=== PATIENT | male | born 1935 | race Two or more races ===

== ENCOUNTER → 2019-05-29 | Outpatient (CLI) | payer OTHER ==
[~2019-05-29] MED LIST: COZAAR50 MG; HYZAAR 100-121 UDTAB
== END | disposition home or self-care (01) ==
LOC: NUCLEAR 05-11 09:00
DX: C61 Malignant neoplasm of prostate (principal); R97.21 Rising PSA following treatment for malignant neoplasm of prostate
CPT/HCPCS: 78306; 78320; A9503